=== PATIENT | female | born 1995 | race Caucasian/White ===

== ENCOUNTER 2019-08-24 16:46 | Emergency (ER) | payer MEDICAID ==
[~2019-08-24] VITALS: Ht 157.5 cm; Wt 81.7 kg
[~2019-08-24 16:46] MED LIST: DESYREL; FIORINAL 50-321 EACH PO; K-DUR 20 MEQ T20 MEQ PO; NORCO 5-325 TA1 EACH PO; PAXIL; PHENERGAN 25 MG25 M1 PO; PHENERGAN25 M2 RECTAL
[2019-08-24] MEDS ORDERED: WELLBUTRIN 100100 MG PO (17:10)
[2019-08-24] MEDS ORDERED: LAMICTAL5 MG PO (17:10)
[2019-08-24] MEDS ORDERED: KLONOPIN0.5 MG PO (17:10)
[2019-08-24 17:46] LABS: INFLUENZA A ANTIGEN Negative (Negative); INFLUENZA B ANTIGEN Negative (Negative)
[2019-08-24] MEDS ORDERED: VENTOLIN HFA 1818 GM INH (18:55)
[2019-08-24] MEDS ORDERED: AZITHROMYCIN500 MG PO (18:55)
[2019-08-24] MEDS ORDERED: TESSALON PERLE100 MG PO (18:55)
[2019-08-24] MEDS ORDERED: PREDNISONE 10 M10 MG PO (18:55)
[2019-08-24 19:11] VITALS: BP 114/71
== END 2019-08-24 19:12 | disposition home or self-care (01) ==
LOC: M.ERS 16:46
PROVIDERS: Nurse Practitioner Family
DX: J20.9 Acute bronchitis, unspecified (principal); F31.9 Bipolar disorder, unspecified; F41.9 Anxiety disorder, unspecified; J45.909 Unspecified asthma, uncomplicated